=== PATIENT | female | born 1990 | race Caucasian/White ===

== ENCOUNTER 2020-07-24 10:00 | Outpatient (RCR) | payer BC, SELFPAY | END 2020-07-28 23:59 | LOC: DC 10:00 | PROVIDERS: Visit Provider Nurse Practitioner Family | DX: O24.410 Gestational diabetes mellitus in pregnancy, diet controlled (principal) | CPT/HCPCS: 97802; G0108 ==

== ENCOUNTER 2020-07-31 13:31 | Outpatient (RCR) | payer BC, SELFPAY ==
[2017-03-13 03:08] VITALS: BMI 38.6
== END 2020-09-19 23:59 ==
LOC: IMMUN 13:31
PROVIDERS: PCP Family Medicine; Visit Provider Family Medicine
DX: Z23 Encounter for immunization (principal)
CPT/HCPCS: 0001A; 91300

== ENCOUNTER 2020-08-07 13:30 | Outpatient (RCR) | payer BC, SELFPAY ==
[2017-03-13 03:08] VITALS: BMI 38.6
== END 2020-08-27 23:59 ==
LOC: DC 13:30
PROVIDERS: Visit Provider Nurse Practitioner Family
DX: O24.410 Gestational diabetes mellitus in pregnancy, diet controlled (principal); Z3A.00 Weeks of gestation of pregnancy not specified

== ENCOUNTER 2020-09-18 13:00 | Outpatient (RCR) | payer BC, SELFPAY ==
[2017-03-13 03:08] VITALS: BMI 38.6
== END 2020-09-27 23:59 ==
LOC: DC 13:00
PROVIDERS: PCP Family Medicine; Visit Provider Nurse Practitioner Family
DX: O24.410 Gestational diabetes mellitus in pregnancy, diet controlled (principal); Z3A.00 Weeks of gestation of pregnancy not specified

== ENCOUNTER 2020-10-09 15:03 | Outpatient (RCR) | payer BC, SELFPAY ==
[2017-03-13 03:08] VITALS: BMI 38.6
== END 2020-10-28 23:59 ==
LOC: DC 15:03
PROVIDERS: PCP Family Medicine; Visit Provider Nurse Practitioner Family
DX: O24.410 Gestational diabetes mellitus in pregnancy, diet controlled (principal); Z3A.00 Weeks of gestation of pregnancy not specified

== ENCOUNTER 2021-02-08 06:58 | Inpatient (IN) | payer BC, SELFPAY ==
[2021-02-08] VITALS (52 sets, daily range): BP systolic 88–216; BP diastolic 48–90; PULSE 67–114; RESP 16; TEMP 36.3–37.2; O2SAT 89–100; BMI 39.4
[2021-02-08] MEDS: Lactated Ringers 1,000 ML 50 ML IV (07:50)
[2021-02-08 08:07] LABS: Absolute Neutrophil Count 9.2 X10^3/uL (2.0-7.7); Basophil# 0.03 X10^3/uL; Basophil% 0.2 % (0-1); Eosinophil# 0.13 X10^3/uL; Hematocrit 34.1 % (37-47); Hemoglobin 10.9 g/dL (12.0-15.0); Lymphocyte % 16.1 % (19-41); Mean Corpuscular Hgb 27.7 pg (27.0-32.0); Mean Corpuscular Volume 86.8 fL (81-99); Mean Platelet Vol. 9.3 fl (6.2-12.0); Monocyte# 0.89 X10^3/uL; Monocyte% 7.2 % (0-10); NRBC Flagged by Analyzer 0 % (0-5); Neutrophil # 9.22 X10^3/uL (2.7-7.7); Neutrophil % 74.3 % (47-70); Platelet Count 355 K/mm3 (150-450); RBC Distribution Width CV 13.3 % (11.6-14.6); RBC Distribution Width SD 42.4 fl (35.1-43.9); Red Blood Count 3.93 M/mm3 (4.2-5.4); White Blood Count 12.4 K/mm3 (4.4-11.0)
[2021-02-08] MEDS: 0.9% Normal Saline Single 100 ML IV.SOLN. INTRA-UTER (08:10)
[2021-02-08] MEDS: Oxytocin 30 units/NS 500 ml 30 UNITS/500 ML IV.SOLN IV (08:13)
[2021-02-08 08:20] LABS: Bedside Glucose 88 mg/dL (70-110)
[2021-02-08 09:26] LABS: Bedside Glucose 102 mg/dL (70-110)
[2021-02-08] MEDS: Lactated Ringers 500 ML 999 ML IV (12:05)
--- NOTE | 2021-02-08 12:07 | HP.PCM.OB_ITS ---
HPI - General General Date of Admission: 02/08/21 Date of Service: 02/08/21 Chief Complaint: induction of labor HPI Narrative ANMOL BRWON, is a 31-year-old female 2 para 1-0-0-1 with EDC of 02/13/2021 who presents at 39 1/7 weeks gestation for induction of labor due to gestational diabetes class A2. She has had good movement. She denies any vaginal bleeding or leaking of fluid. Her blood sugars have been well con trolled. Maternal Data Information Final JOANNA: 02/13/21 Gestational age: 39 1/7 PFSH [facility] Medical History (Updated 02/08/21 @ 12:[address] Maryam Mccoy MD) Gestational diabetes depression Home Medications PNV cmb#95-ferrous fumarate-FA [] 1 ea PO DAILY 03/13/17 [History Last Taken 02/08/21 06:00] insulin NPH and regular human 10 units OTHER QHS 02/08/21 [History Last Taken 02/07/21 21:00] Allergy/AdvReac Type Severity Reaction Status Date / Time No Known Allergies Allergy Verified 03/13/17 03:05 Family History no significant family his Surgical History (Updated 02/08/21 @ 08:55 by Piper Quintanilla) History of tonsillectomy and adenoidectomy Surgical History no surgical history Social History Smoking Status: Never smoker History Elective abortions Hx Para 1 Spontaneous abortions Hx # Term Pregnancies Ectopic pregnancies Hx # Pregnancies Multiple births # of living children NST FHR Rate Baby A Baseline: normal Variability:: Moderate Accelerations:: 15 x 15 Decelerations:: None FHR Category:: Category I Uterine Activity:: irreg ctxs ROS Constitutional Constitutional: Denies fatigue, fever(s) or malaise Eyes Eyes: Denies change in vision ENT HEENT: Denies dizziness or headache(s) Cardiovascular Cardiovascular: Denies chest pain, dyspnea or lightheadedness Respiratory/Chest Respiratory/Chest: Denies cough or dyspnea Gastrointestinal Gastrointestinal: Denies change in bowel habits Genitourinary Genitourinary: Denies burning urination or genital lesions Integumentary Integumentary: Denies rash Neurologic Neurologic: Denies confusion, dizziness, headache(s), numbness or weakness Vital Signs Vital Signs Vital Signs: 02/08/21 07:28 12/12/21 07:30 02/08/21 09:10 Temperature 98.0 F 98.2 F Temperature Source Temporal Temporal Pulse Rate 90 Blood Pressure 140/89 H BP Systolic 140 BP Diastolic 89 02/08/21 09:11 02/08/21 10:09 02/08/21 11:09 Temperature 98.4 F Temperature Source Temporal Pulse Rate 81 76 80 Blood Pressure 142/82 H 130/88 H 136/86 H BP Systolic 142 130 136 BP Diastolic 82 88 86 Weight Weight: 94.574 kg Body Mass Index (BMI) 39.4 Physical Exam Const alert and no apparent distress General Appearance: cooperative HEENT normocephalic Resp normal respiratory effort Cardio regular rate GI soft to palpation GI Narrative: gravid, nontender, appropriate for gestational age Extremity no calf tenderness General Extremity: edema Skin no wounds Rashes: No rashes noted Psych activity/motor behavior normal Labs Labs Labs: Blood Type A POSITIVE Antibody Screen NEGATIVE Hct 34.1 % (37-47) L Hgb 10.9 g/dL (12.0-15.0) L Rhogam given: No Assessment & Plan (1) 39 weeks gestation of : PLAN: Gestational diabetes has been well controlled with insulin. Estimated weight is less than 4500 g clinically and pelvis clinically adequate to expect vaginal delivery. May have IV medications, nitrous, or epidural as needed for pain control. Will monitor blood sugars. Procedure note: At approximately 8:15 AM a Pan catheter was placed over a stylette into the internal cervical os in the usual sterile fashion. The balloon was inflated to 30 cc and placement over internal os was confirmed. Patient and fetus tolerated the procedure well. (2) Multigravida in third trimester: (3) Insulin controlled gestational diabetes mellitus in third trimester: (4) Elective induction of labor planned: (5) Maternal obesity syndrome in third trimester: (6) BMI 39.0-39.9,adult:
[2021-02-08] MEDS: fentaNYL-bupivacaine (epidural) 100 ML BAG EPIDURAL (13:16)
[2021-02-08 14:36] LABS: Bedside Glucose 68 mg/dL (70-110)
[2021-02-08] MEDS: Amnioinfusion- 0.9% NS 1,000 ML IV.SOLN. INTRA-UTER (15:56)
[2021-02-08] MEDS: Lactated Ringers 1,000 ML 200 ML IV (16:04)
[2021-02-08 16:16] LABS: Bedside Glucose 80 mg/dL (70-110)
[2021-02-08] MEDS: Oxytocin 30 units/NS 500 ml 30 UNITS/500 ML IV.SOLN 334 UNITS IV (16:50)
--- NOTE | 2021-02-08 17:00 | OP.PCM_ITS ---
Assessment & Plan (1) Normal vaginal delivery: (2) Delivery outcome of liveborn : Maternal Data Information Final JOANNA: 02/13/21 Gestational age: 39 2/7 Details Operative Information Date of Procedure: 02/08/21 Vaginal Delivery Maternal Presentation Maternal Presentation: Medically Indicated Induction Type of Induction: Pitocin, Pan Bulb and Amniotomy Medical Reason for Induction: - (39 weeks, gest DM A2) Operative Information Date of Procedure: 02/08/21 Pre-Operative Diagnosis: labor Post-Operative Diagnosis: same Surgery / Procedure Performed: Forceps Assisted Vaginal Delivery Type of Anesthesia: Epidural Special Medications: none Drain: Pan to straight drain Estimated Blood Loss: 200 Time of Delivery: 16:48 Findings Description of Procedure: A vigorous male infant was delivered MAULIK over an intact perineum. A loose nuchal cord ?1 was easily reduced. The remainder the infant was delivered with maternal pushing and gentle traction only in less than 15 seconds. The Pitocin infusion was initiated for active management of the third stage. The cord was clamped and cut after 1 minute. The infant was attended to by the waiting nursing staff. The placenta was delivered spontaneously and intact. The cervix and vagina were intact. Sponge and needle counts were correct. A vaginal sweep was completed by me. Presentation: MAULIK Amniotic Membrane Rupture Type: Spontaneous Amniotic Fluid Description: Clear Placental Delivery Description: Spontaneous Placenta Disposition: [facility] Cord Vessel Description: 3 Vessels Cord Entanglement: Around neck x 1, loose Nuchal Cord Compression: Without compression A Gender: Male ([place]) (1 minute): 8 (5 minute): 9 Delayed Cord Clamping: Yes Post Vaginal Delivery Medications Given After Delivery: IV Pitocin Episiotomy Description: None Laceration: None Complication Complications: None
[2021-02-08 17:51] LABS: Bedside Glucose 88 mg/dL (70-110)
[2021-02-08] MEDS: 0.9% Saline Lock 10 ML Syringe IV (20:00)
[2021-02-09] VITALS (11 sets, daily range): BP systolic 104–171; BP diastolic 55–75; PULSE 77–98; RESP 14–20; TEMP 36.5–36.8
[2021-02-09] MEDS: Naproxen 500 MG Tablet PO ×2 (02:25→19:46)
[2021-02-09 05:55] LABS: Bedside Glucose 77 mg/dL (70-110)
--- NOTE | 2021-02-09 08:53 | PCM.PN.OB ---
Subjective Subjective Doing well per patient and nursing staff. Ambulating and taking PO without difficulty. Voiding and passing flatus. Pain controlled. , services for assistance. Denies headache, visual changes, chest pain, shortness of breath, leg pain or increased bleeding. Lochia normal. Objective Data Objective Data Vital Signs: Vital Signs Temp Pulse Resp BP Pulse Ox 97.7 F L 82 14 108/57 L 91 02/09/21 03:19 02/09/21 03:19 02/09/21 03:19 02/09/21 03:19 02/08/21 13:14 Oxygen Delivery Method Room Air Weight: 208 lb 8 oz Body Mass Index (BMI) 39.4 Intake & Output: Intake and Output for Last 24 Hours 02/07/21 02/08/21 02/09/21 23:59 23:59 23:59 Intake Total 2949.82 / 2949.82 800 / 800 Output Total 1000 / 1000 400 / 400 Balance 1949.82 / 1949.82 400 / 400 Lab / Micro Data Result Diagrams: 02/08/21 07:50 Labs: Laboratory Results - last 24 hr 02/08/21 07:50: Blood Type A POSITIVE, Antibody Screen NEGATIVE 02/08/21 09:08: POC Glucose 102 02/08/21 14:30: POC Glucose 68 L 02/08/21 16:07: POC Glucose 80 02/08/21 17:36: POC Glucose 88 02/09/21 05:48: POC Glucose 77 ROS Constitutional Constitutional: Reports systems reviewed and no addt'l complaints, except as documented; Denies headache(s) Eyes Eyes: Denies acute decrease in peripheral vision, blurry vision or change in vision ENT HEENT: Reports systems reviewed and no addt'l complaints, except as documented Cardiovascular Cardiovascular: Denies chest pain or dizziness Respiratory/Chest Respiratory/Chest: Denies cough, dyspnea, dyspnea on exertion, shortness of breath at rest or shortness of breath with exertion Gastrointestinal Gastrointestinal: Denies abdominal pain, diarrhea, nausea or vomiting Genitourinary Genitourinary: Denies abdominal discomfort Musculoskeletal Musculoskeletal: Denies limited range of motion Integumentary Integumentary: Reports systems reviewed and no addt'l complaints, except as documented Neurologic Neurologic: Reports systems reviewed and no addt'l complaints, except as documented Psychiatric Psychiatric: Reports systems reviewed and no addt'l complaints, except as documented Endocrine Endocrinology: Reports systems reviewed and no addt'l complaints, except as documented Hematologic/Lymphatic Hematologic/Lymphatic: Reports systems reviewed and no addt'l complaints, except as documented Allergic/Immunologic Allergic/Immunologic: Reports systems reviewed and no addt'l complaints, except as documented Physical Exam Const alert and oriented x3 General Appearance: cooperative Orientation / Consciousness: awake, oriented to person, oriented to place and oriented to time Exam Limitations: no limitations HEENT normocephalic Head and Scalp: normal to inspection, normocephalic and atraumatic Face and Sinus: normal facial exam Eyes General Eye: normal appearance of both eyes Neck full ROM Chest Chest: symmetrical chest wall rise Resp normal respiratory effort and normal air movement Auscultation: clear to auscultation bilaterally Cardio regular rate, regular rhythm, S1 normal heart sound, S2 normal heart sound, no murmurs, no rub, no gallops and no clicks GI normal to inspection, nondistended, normoactive bowel sounds GI Narrative: Fundus firm to below you, appropriately tender appearance of the vagina normal Bladder / Kidney Exam: no CVA tenderness Back/Spine normal ROM Extremity normal to inspection and full ROM Extremity Narrative: Homans negative bilaterally Skin no rashes or lesions noted Neuro oriented x3, CN's II-XII intact bilaterally and moves all extremities Sensorium / Orientation: awake, alert and oriented to person Motor Exam: clonus absent Deep Tendon Reflexes: Rt Patellar (L4): 2+ and Lt Patellar (L4): 2+ Assessment & Plan (1) Delivery outcome of liveborn infant: (2) Normal vaginal delivery: (3) BMI 39.0-39.9,adult: PLAN: 1. day #1 , routine care 2. Breast-feeding support and services if needed 3. Pain controlled 4. Vital signs stable 5. Planning discharge home tomorrow
--- NOTE | 2021-02-09 17:26 | NURSING ---
Kathie CNM on unit and aware of BP's. Pt was just waking up with first BP of 171/62. Repeat BP in 10 min 121/55. Pt denies JOHNSON, visual dist., RUQ pain. +2 pedal edema. No changes from morning assessment. Pt denies pain. Kathie requesting a follow up BP in 1 hr. If WNL continue routine PP orders.
[2021-02-10 02:26] VITALS: BP 114/61; PULSE 77
[2021-02-10 02:30] VITALS: BP 114/61; PULSE 77; RESP 18; TEMP 36.5; O2SAT 98
--- NOTE | 2021-02-10 08:47 | PCM.PN.OB ---
Subjective Subjective Denies complaints Objective Data Objective Data Vital Signs: Vital Signs Temp Pulse Resp BP Pulse Ox 97.7 F L 77 18 114/61 98 02/10/21 02:30 02/10/21 02:30 02/10/21 02:30 02/10/21 02:30 02/10/21 02:30 Oxygen Delivery Method Room Air Weight: 208 lb 8 oz Body Mass Index (BMI) 39.4 Intake & Output: Intake and Output for Last 24 Hours 02/08/21 02/09/21 02/10/21 23:59 23:59 23:59 Intake Total 2949.82 / 2949.82 800 / 800 Output Total 1000 / 1000 400 / 400 Balance 1949.82 / 1949.82 400 / 400 Lab / Micro Data Result Diagrams: 02/08/21 07:50 Physical Exam Const alert, oriented x3 and no apparent distress HEENT normocephalic GI soft to palpation, non-tender and non-distended GI Narrative: fundus firm, mid & below umbilicus Extremity normal to inspection and no calf tenderness Assessment & Plan (1) Normal vaginal delivery: COMMENT: PPD#2 PLAN: D/c home later today
--- NOTE | 2021-02-10 08:49 | PCM.DC ---
Discharge Instructions Diet Discharge Diet: No restrictions Activity Discharge Activity: May Shower May resume sexual activity in: 6 weeks Weight Bearing Status: Weight bearing as tolerated Dressing / Incision Call your doctor if you observe: Fever of 101 or Higher, Coldness, Increased Pain, Change in Color, Inability to urinate, Inability to have a bowel movement, Using more than 1 pad per hour, Shortness of breath, Dizziness, Fainting spells, Chest pain, Increased palpitations (irregular heartbeat), Calf discomfort and Uncontrolled pain Follow Up Care Please Follow Up With: Neil Carroll MD When: Follow up in 2 and 6 weeks for visits. Test Results: Test results from this visit will be discussed in further detail at your follow-up appointment, if applicable. Discharge Plan Admission Admit Date/Time: 02/08/21 06:58 Primary Reason for Your Visit: Vaginal delivery Attending Provider: Maryam Mccoy Primary Care Provider: Toy Shea Discharge Orders/Prescriptions Prescriptions: No Action PNV cmb#95-ferrous fumarate-FA [] 1 EACH tablet 1 ea PO DAILY RF: 0 insulin NPH and regular human 10 units OTHER QHS RF: 0 Referrals / Follow Up: Toy Shea MD [Primary Care Provider] - Disposition Disposition (needs filled in before D/C Order can be placed): Home, Self Care
[2021-02-10 08:58] VITALS: BP 167/79; PULSE 89
[2021-02-10 09:00] VITALS: BP 115/62; PULSE 82
[2021-02-10 09:01] VITALS: PULSE 76; O2SAT 99
[2021-02-10 09:08] VITALS: BP 115/62; PULSE 82; RESP 16; TEMP 36.5; O2SAT 99
== END 2021-02-10 12:00 | disposition home or self-care (01) | DRG 807 ==
PROVIDERS: Admitting Provider Obstetrics & Gynecology; PCP Family Medicine; Visit Provider Obstetrics & Gynecology
DX: O24.424 Gestational diabetes mellitus in childbirth, insulin controlled (principal); Z37.0 Single live birth; Z3A.39 39 weeks gestation of pregnancy; Z79.4 Long term (current) use of insulin; O99.214 Obesity complicating childbirth; E66.9 Obesity, unspecified; O69.81X0 Labor and delivery complicated by cord around neck, without compression, not applicable or unspecified
CPT/HCPCS: 59025; 59050; 82962; 85025; 86850; 86900; 86901; 99218; J7030; J7120; A4216; G0378